=== PATIENT | female | born 1985 | race Caucasian/White ===

== ENCOUNTER 2017-04-13 12:44 | Emergency (ER) | payer SELFPAY ==
[2017-04-13] MEDS ORDERED: Ibuprofen TAB* 400 MG PO ONE (14:11)
--- NOTE | 2017-04-13 14:19 | UC ---
Back Pain HPI - HPI Summary HPI Summary: Patient was assisted a resident off the toilet and her knees buckled and the patient had to hold her as to prevent a fall. The patient states she then felt her back pull and she now complains of back pain that originated from the lower and now radiates to through the entire back. She also notes tingling that is starting to go into her left hip and down the left leg. She denies incontinence of bowel and bladder, and denies saddle anesthesia. She states the pain has been constant. - History of Current Complaint Chief Complaint: UCBackPain Stated Complaint: BACK INJURY WC Time Seen by Provider: 04/13/17 13:56 Hx Obtained From: Patient Hx Last Menstrual Period: 03/30/17 Onset/Duration: Sudden Onset Timing: Constant Severity Initially: Moderate Severity Currently: Moderate Back Pain: Is Diffuse Character: Dull, Aching, Spasmodic, Stiffness Aggravating Factor(s): Movement, Lifting, Bending, Walking Alleviating Factor(s): Nothing - Risk Factors AAA Risk Factors: Negative TAD Risk Factors: Negative Cauda Equina Risk Factors: Negative Epidural Abscess Risk Factors: Negative - Allergies/Home Medications Allergies/Adverse Reactions: Allergies Allergy/AdvReac Type Severity Reaction Status Date / Time No Known Allergies Allergy Verified 04/13/17 12:55 Home Medications: Home Medications NK [No Home Medications Reported] 04/13/17 [History Confirmed 04/13/17] PMH/Surg Hx/FS Hx/Imm Hx Previously Healthy: Yes - Surgical History Surgical History: Yes Surgery Procedure, Year, and Place: c section. tonsilectomy - Family History Known Family History: Positive: Cardiac Disease Family History: breast cancer - Social History Alcohol Use: None Substance Use Type: None Smoking Status (MU): Former Smoker Type: Cigarettes Amount Used/How Often: 5 years Length of Time of Smoking/Using Tobacco: 7 years Have You Smoked in the Last Year: No Review of Systems Musculoskeletal: Decreased ROM, Myalgia All Other Systems Reviewed And Are Negative: Yes Physical Exam Triage Information Reviewed: Yes Appearance: Pain Distress Vital Signs: Initial Vital Signs Temp 98 F 04/13/17 12:57 Pulse 90 04/13/17 12:57 Resp 20 04/13/17 12:57 BP 111/77 04/13/17 12:57 Pulse Ox 100 04/13/17 12:57 Vital Signs Reviewed: Yes Eye Exam: Normal ENT Exam: Normal Neck exam: Normal Respiratory Exam: Normal Cardiovascular Exam: Normal Abdominal Exam: Normal - back inspection; vertebrea in good aligment no step- offs of deformities. no areas of eccymosis, erythma, or edema. palpation; nontender midline. palpable pain through-out the muscualture of the back. lower extremity strength testing equal 4/5. patellar relfexes 2+ negative straight leg raise. gait -slow, heel-toe. Back Pain Course/Dx - Course Course Of Treatment: Patient given ibuprofen in the department. xrays negative. RX muscle relaxers amd nsaids. out of work x three days. pt if symtpoms persist. discharge in stable condition. - Differential Dx/Diagnosis Differential Diagnosis/HQI/PQRI: Strain, Sprain Provider Diagnoses: acute back pain
[2017-04-13 14:50] VITALS: BP 111/66
--- NOTE | 2017-04-13 14:52 | RAD ---
HISTORY: Left back pain, trauma COMPARISONS: None VIEWS: 5 , Frontal, lateral, coned-down lateral sacral, and bilateral oblique views of the lumbar spine. FINDINGS: ALIGNMENT: The alignment is normal. VERTEBRAL BODIES: The vertebral body heights are normal. The interpedicular distances are normal. JOINTS: The facet joints are normal. INTERVERTEBRAL DISCS: The intervertebral disc heights are normal. SOFT TISSUE: Unremarkable. OTHER: The pelvis is unremarkable. The lung bases are clear. IMPRESSION: UNREMARKABLE RADIOGRAPHS OF THE LUMBAR SPINE
== END 2017-04-13 15:39 | disposition home or self-care (01) ==
LOC: UCEAST 12:44
DX: M54.89 Other dorsalgia (principal); W04.XXXA Fall while being carried or supported by other persons, initial encounter; Z87.891 Personal history of nicotine dependence
CPT/HCPCS: 72110; A9270-GY

== ENCOUNTER 2017-11-15 14:34 | Emergency (ER) | payer BC ==
[2017-11-15 15:31] VITALS: BP 116/76
--- NOTE | 2017-11-15 15:42 | UC ---
Respiratory Complaint HPI - HPI Summary HPI Summary: Pt presents with dry cough for 1 week. She has been taking robitussin at bedtime with mild relief. She is currently ~8weeks . Sometimes will get into coughing "fits" that will make her vomit. Denies fever, chills, SOB, chest pain, pelvic pain, vaginal bleeding/discharge. - History of Current Complaint Chief Complaint: UCGeneralIllness Stated Complaint: COUGH Time Seen by Provider: 11/15/17 15:42 Hx Obtained From: Patient Hx Last Menstrual Period: 03/30/17 ?: Yes Onset/Duration: Gradual Onset Severity Initially: Moderate Severity Currently: Moderate Pain Intensity: 6 Pain Scale Used: 0-10 Numeric Character: Cough: Nonproductive - Allergies/Home Medications Allergies/Adverse Reactions: Allergies Allergy/AdvReac Type Severity Reaction Status Date / Time Penicillins Allergy Hives Verified 11/15/17 15:31 PMH/Surg Hx/FS Hx/Imm Hx - Additional Past Medical History Additional PMH: None Previously Healthy: Yes - Surgical History Surgical History: Yes Surgery Procedure, Year, and Place: c section. tonsilectomy - Family History Known Family History: Positive: Cardiac Disease Family History: breast cancer - Social History Occupation: Employed Full-time Lives: With Family Alcohol Use: None Substance Use Type: None Smoking Status (MU): Former Smoker Type: Cigarettes Amount Used/How Often: 5 years Length of Time of Smoking/Using Tobacco: 7 years Have You Smoked in the Last Year: No Review of Systems Constitutional: Negative Skin: Negative Eyes: Negative ENT: Negative Respiratory: Cough Cardiovascular: Negative Gastrointestinal: Negative Neurovascular: Negative Neurological: Negative Psychological: Negative All Other Systems Reviewed And Are Negative: Yes Physical Exam - Summary Physical Exam Summary: GENERAL: NAD. WDWN. No pain distress. SKIN: No rashes, sores, lesions, or open wounds. HEENT: Head: AT/NC Eyes: EOM intact. Conjunctiva clear without inflammation or discharge. Ears: Hearing grossly normal. TMs intact, no bulging, erythema, or edema. Nose: Nasal mucosa pink and moist. NTTP maxillary and frontal sinus. Throat: Posterior oropharynx without exudates, erythema, or tonsillar enlargement. Uvula midline. NECK: Supple. Nontender. No lymphadenopathy. CHEST: CTAB. No r/r/w. No accessory muscle use. Breathing comfortably and in no distress. CV: RRR. Without m/r/g. Pulses intact. Brisk cap refill. NEURO: Alert. CN II-XII grossly intact. PSYCH: Age appropriate behavior. Triage Information Reviewed: Yes Vital Signs: Initial Vital Signs Temp 97.5 F 11/15/17 15:27 Pulse 69 11/15/17 15:27 Resp 20 11/15/17 15:27 BP 116/76 11/15/17 15:27 Pulse Ox 100 11/15/17 15:27 Diagnostic Evaluation - Laboratory O2 Sat by Pulse Oximetry: 100 Respiratory Course/Dx - Course Course Of Treatment: Suspect viral cough. Pt is requesting some type of therapy other than OTC. Given her , antitussive presciptions are extremely limited. She would like to try and antibiotic and will call her OBGYN tomorrow to see if she can take tessalon (preg cat C) or something other than robitussin. - Differential Dx/Diagnosis Provider Diagnoses: Viral cough Discharge - Sign-Out/Discharge Documenting (check all that apply): Discharge/Admit/Transfer - Discharge Plan Condition: Stable Disposition: HOME Prescriptions: Azithromycin TAB* [Zithromax TAB (Z-LINDA) 250 mg #6 tabs] 2 tab PO .TODAY, THEN 1 DAILY #1 linda Patient Education Materials: Acute Bronchitis (ED) Referrals: Vilma Bang MD [Primary Care Provider] - Additional Instructions: If you develop a fever, shortness of breath, chest pain, new or worsening symptoms - please call your PCP or go to the ED. - Billing Disposition and Condition Condition: STABLE Disposition: HOME
== END 2017-11-15 16:30 | disposition home or self-care (01) ==
LOC: UCEAST 14:34
DX: O26.891 Other specified pregnancy related conditions, first trimester (principal); R05 Cough; Z3A.08 8 weeks gestation of pregnancy; Z88.0 Allergy status to penicillin; Z87.891 Personal history of nicotine dependence
CPT/HCPCS: 99212; G0463

== ENCOUNTER 2018-06-18 06:53 | Inpatient (IN) | payer BC, MEDICAID ==
[~2018-06-18 06:53] MED LIST: Buffered Lidocaine 0.9% SYRIN* 5 ML/SYR SYRINGE INTRADERM ONE; Sodium Citrate/Citric Acid* 15 ML UDC PO ONE
[2018-06-18] MEDS ORDERED: Sodium Citrate/Citric Acid* 15 ML UDC ONE (07:10)
[2018-06-18] MEDS ORDERED: ceFAZolin 2 GM PREMIX in ORs 2 GM/50 ML BAG IVPB ONE (07:11)
[2018-06-18] MEDS ORDERED: Morphine PF AMP (0.5MG/ML)* 5 MG/10 ML AMP ONE (08:51)
[2018-06-18] MEDS ORDERED: Carboprost Tromethamine* 250 MCG INJ ONE (09:40)
[2018-06-18] MEDS ORDERED: Ondansetron INJ* 2 MG/ML VIAL ONE (09:56)
[2018-06-18] MEDS ORDERED: EPHEDrine (Pressors)* 50 MG/ML VIAL ONE (09:56)
[2018-06-18] MEDS ORDERED: OXYTOCIN* 10 UNITS/ML 1 ML VIAL ONE (09:57)
[2018-06-18] MEDS ORDERED: Bupivacaine-MPF SPINAL* 7.5 MG/ML - 2ML AMP ONE (09:57)
[2018-06-18] MEDS ORDERED: Ketorolac INJ* 30 MG/ML 1 ML VIAL ONE (09:57)
[2018-06-18] MEDS ORDERED: Nalbuphine* 10 MG/ML 1 ML VIAL IV PRN (10:00)
[2018-06-18] MEDS ORDERED: Acetaminophen TAB* 325 MG PO PRN ×2 (10:00→12:31)
[2018-06-18] MEDS ORDERED: HYDROmorphone INJ1* 1 MG/ML SYRINGE IV PRN (10:00)
[2018-06-18] MEDS ORDERED: oxyCODONE TAB* 5 MG TAB PO PRN (10:00)
[2018-06-18] MEDS ORDERED: Naloxone* 0.4 MG/ML 1 ML VIAL IV PRN ×2 (10:00)
[2018-06-18] MEDS ORDERED: oxyCODONE/Acetamin 5/325 MG* TAB PO PRN (12:30)
[2018-06-18] MEDS ORDERED: Zolpidem TAB* 5 MG PO PRN (12:31)
[2018-06-18] MEDS ORDERED: Glycerin ADULT SUPP PR PRN (12:31)
[2018-06-18] MEDS ORDERED: Dibucaine 1% 28.35 GM TUBE PR PRN (12:31)
[2018-06-18] MEDS ORDERED: Witch Hazel PAD* JAR TOPICAL PRN (12:31)
[2018-06-18] MEDS: Docusate CAP* 100 MG PO SCH ×2 (14:45→21:39)
[2018-06-18] MEDS ORDERED: HYDROmorphone INJ* 0.5 MG/0.5 ML SYRINGE IV PRN (14:45)
[2018-06-18] MEDS: Ketorolac INJ* 30 MG/ML 1 ML VIAL IV PRN ×2 (16:09→21:39)
[2018-06-18] MEDS: Simethicone TAB* 80 MG TAB.CHEW PO SCH (21:39)
[2018-06-19] MEDS ORDERED: oxyCODONE/Acetamin 5/325 MG* TAB PO PRN (01:21)
[2018-06-19] MEDS: Ketorolac INJ* 30 MG/ML 1 ML VIAL IV PRN (03:30)
[2018-06-19 06:47] LABS: ABS Basophils 0 10^3/ul (0-0.2); ABS Eosinophils 0.1 10^3/ul (0-0.6); ABS Lymphocytes 1.1 10^3/ul (1.0-4.8); ABS Neutrophils 7.9 10^3/ul (1.5-7.7); ABS Nucleated RBC 0 10^3/ul; Eosinophil % 0.6 %; Hematocrit 30 % (35-47); Hemoglobin 10.1 g/dl (12.0-16.0); Lymphocyte % 11.3 %; Mean Corpuscular HGB Conc 34 g/dl (31-36); Mean Corpuscular Hemoglobin 31 pg (27-31); Mean Corpuscular Volume 89 fL (80-97); Mean Platelet Volume 8.1 fL (7.4-10.4); Nucleated Red Blood Cells % 0.1; Platelet Count 165 10^3/ul (150-450); Red Blood Count 3.31 10^6/ul (4.00-5.40); Red Cell Distribution Width 13 % (10.5-15); White Blood Count 10.1 10^3/ul (3.5-10.8)
--- NOTE | 2018-06-19 07:23 | OP ---
DATE OF OPERATION: 06/18/18 - ROOM #117 DATE OF : 89 SURGEON: Dr. Akbar. FEEDER TENDER: Dr. Lacy. ANESTHESIA: Spinal. PRE-OP DIAGNOSES: Intrauterine gestation at 39+ weeks gestational age, prior section, desires repeat section, breech presentation. POST-OP DIAGNOSES: Intrauterine gestation at 39+ weeks gestational age, prior section, desires repeat section, breech presentation. OPERATIVE PROCEDURE: Repeat low transverse section. EBL: 800 mL. FLUIDS: Crystalloid. DRAINS: Last catheter with clear urine. COUNTS: Counts were all correct. FINDINGS: Female infant, Apgars of 9 and 9, weight 7 pounds 9 ounces. Normal appearing uterus, ovaries, and tubes. Normal appearing placenta with the three - vessel cord. Moderate amount of scarring between the skin and the peritoneum. No intraperitoneal scarring. DESCRIPTION OF PROCEDURE: After informed consent was signed, the patient was taken to the operating room where she was given spinal anesthesia that was found to be adequate. A Last catheter was introduced into her bladder and SCDs were placed on her legs. She was prepped and draped in the dorsal supine position with a leftward tilt. Just prior to the initiation of the procedure, the patient had what I believed to be a panic attack and passed out very briefly for a few seconds with quick return to normal orientation. Time-out was then performed and a Pfannenstiel skin incision was made along the old scar with a scalpel, this was carried down to the underlying layer of fascia with the scalpel and the Valdez scissors. The fascia was incised on the midline and the fascial incision was extended laterally with the Valdez scissors. The inferior edge of the fascial incision was grasped with Russell clamps, tented up and dissected down with a combination of sharp and blunt dissection, then the superior edge of the fascial incision was grasped with Russell clamps, tented up and dissected down with a combination of sharp and blunt dissection. The rectus muscles were in the midline and the peritoneum was entered bluntly. The peritoneal incision was extended laterally with a combination of sharp and blunt dissection. A transverse incision was made in the lower uterine segment with the scalpel. The incision was extended superiorly and inferiorly with blunt pressure. The was in fabio breech presentation, the buttocks were delivered with fundal pressure followed by the torso and the legs. The arms were delivered rotated internally and the head was delivered in a flexed position. The cord was milked towards the baby and after more than 30 seconds it was clamped x2 and cut. The baby was handed to the clinical director and was vigorous on delivery. Cord blood was collected. The placenta then delivered with fundal massage and gentle cord traction. The uterus was then exteriorized, cleared of all clots and debris and covered with a moist lap. The uterine incision was closed with 0 Vicryl in a running locked fashion with a second layer of suture imbricating the first. Initially, the lower segment was boggy, but then firmed up by the end of the closure. The abdomen was irrigated and the uterus was placed back into the abdominal cavity. The incision was inspected and good hemostasis was noted. The peritoneum was then closed with 3-0 Vicryl in a running unlocked fashion. The fascia was closed with 0 Vicryl in a running unlocked fashion. Good hemostasis was noted in the subcuticular layer. Two sutures of 3-0 Vicryl were placed in the subcuticular layer to reapproximate the tissue. The skin was then closed with 4-0 Monocryl in a running subcuticular fashion. Mastisol and Steri-Strips were placed. The dressing was placed, and the patient was cleaned, move to the stretcher and taken to the recovery room in stable condition. [id number]/[facility] #: [id number] MARIELY
[2018-06-19] MEDS: Simethicone TAB* 80 MG TAB.CHEW PO SCH ×3 (08:54→21:29)
[2018-06-19] MEDS: Ibuprofen TAB* 600 MG PO PRN ×3 (08:54→21:30)
[2018-06-19] MEDS: Docusate CAP* 100 MG PO SCH ×3 (08:55→21:31)
[2018-06-19] MEDS ORDERED: Ferrous Gluconate TAB* 324 MG TAB PO SCH (09:00)
[2018-06-20] MEDS: oxyCODONE/Acetamin 5/325 MG* TAB PO PRN ×6 (01:01→23:35)
[2018-06-20] MEDS: Ibuprofen TAB* 600 MG PO PRN ×4 (05:22→23:35)
[2018-06-20] MEDS: Simethicone TAB* 80 MG TAB.CHEW PO SCH ×3 (08:54→23:10)
[2018-06-20] MEDS: Docusate CAP* 100 MG PO SCH ×3 (08:54→23:10)
[2018-06-21] MEDS: oxyCODONE/Acetamin 5/325 MG* TAB PO PRN ×2 (05:16→11:18)
[2018-06-21] MEDS: Ibuprofen TAB* 600 MG PO PRN (05:40)
[2018-06-21 07:59] VITALS: BP 130/79
[2018-06-21] MEDS: Simethicone TAB* 80 MG TAB.CHEW PO SCH (09:28)
[2018-06-21] MEDS: Docusate CAP* 100 MG PO SCH (09:28)
== END 2018-06-21 11:40 | disposition home or self-care (01) | DRG 540 ==
LOC: MCHOB 06:53 → EDSTATUS 08:45
PROVIDERS: ADMIT Obstetrics & Gynecology; ATTEND Obstetrics & Gynecology
PROC: 10D00Z1 Extraction of Products of Conception, Low, Open Approach (ICD-10-PCS; principal; 2018-06-18 08:45)
DX: O34.211 Maternal care for low transverse scar from previous cesarean delivery (principal); O32.8XX0 Maternal care for other malpresentation of fetus, not applicable or unspecified; F41.0 Panic disorder [episodic paroxysmal anxiety]; R55 Syncope and collapse; Z3A.39 39 weeks gestation of pregnancy; Z37.0 Single live birth
CPT/HCPCS: 36415; 85025; A9270-GY; J0690; J1885; J2405; J2590

== ENCOUNTER 2022-10-03 05:01 | Inpatient (IN) ==
[2022-10-03] MEDS ORDERED: Sodium Citrate/Citric Acid LIQ 15 ML UDC PO ONE (06:00)
[2022-10-03] MEDS ORDERED: Buffered Lidocaine 1% SYRIN 1 ml INTRADERM ONE (06:00)
[2022-10-03] MEDS ORDERED: Lactated Ringers 1000 ml BAG 1,000 ML IV SCH ×2 (06:00→23:00)
[2022-10-03] MEDS ORDERED: ceFOXitin 2 GM PREMIX 50 ML IVPB ONE (06:00)
[2022-10-03 06:27] LABS: ABS Eosinophils 0.1 10^3/ul (0-0.6); ABS Lymphocytes 1.4 10^3/ul (1.0-4.8); ABS Monocytes 0.9 10^3/ul (0-0.8); ABS Neutrophils 5.6 10^3/ul (1.5-7.7); Eosinophil % 0.6 %; Hematocrit 39 % (35-47); Hemoglobin 13.7 g/dL (12.0-16.0); Lymphocyte % 17.8 %; Mean Corpuscular HGB Conc 36 g/dL (31-36); Mean Corpuscular Hemoglobin 35 pg (27-31); Mean Corpuscular Volume 97 fL (80-97); Mean Platelet Volume 8.1 fL (7.4-10.4); Platelet Count 137 10^3/uL (150-450); Red Blood Count 3.96 10^6 /uL (3.70-4.87); Red Cell Distribution Width 13 % (10-15)
[2022-10-03] MEDS ORDERED: Phenylephrine IV 10 MG/ML 1 ml VIAL ONE (07:42)
[2022-10-03] MEDS ORDERED: Morphine PF AMP (0.5MG/ML) 5 MG/10 ML AMP ONE (07:42)
[2022-10-03] MEDS ORDERED: Oxytocin 10 UNITS/ML 1 ML VIAL ONE (07:42)
[2022-10-03] MEDS ORDERED: Scopolamine 1 mg/72hr PATCH ONE (07:42)
[2022-10-03] MEDS ORDERED: Acetaminophen IV 1 GM/100ML 1,000 MG/100 ML BAG IV ONE (07:44)
[2022-10-03] MEDS ORDERED: Ondansetron 4 mg VIAL 2 MG/ML 2 ml VIAL ONE (08:21)
[2022-10-03] MEDS ORDERED: Ondansetron 4 mg VIAL 2 MG/ML 2 ml VIAL IV PRN ×2 (08:48→08:49)
[2022-10-03] MEDS ORDERED: fentaNYL 100 mcg/2 ml 50 MCG/ML VIAL IV PRN (08:48)
[2022-10-03] MEDS ORDERED: Naloxone 0.4 mg VIAL 0.4 mg/ml 1 ml VIAL IV PRN (08:48)
[2022-10-03] MEDS ORDERED: Scopolamine 1 mg/72hr PATCH TRANSDERM PRN (08:49)
[2022-10-03] MEDS ORDERED: Metoclopramide 5 MG/ML VIAL (10 mg) IV PRN (08:49)
[2022-10-03] MEDS ORDERED: Acetaminophen IV 1 GM/100ML 1,000 MG/100 ML BAG IV PRN (08:49)
[2022-10-03] MEDS ORDERED: Naloxone 0.4 mg VIAL 0.4 mg/ml 1 ml VIAL IV PUSH PRN (08:49)
[2022-10-03] MEDS ORDERED: fentaNYL 100 mcg/2 ml 50 MCG/ML VIAL ONE (08:53)
[2022-10-03 13:19] LABS: Urine Benzodiazepine Screen None Detected (None Detect); Urine Opiates Screen None Detected (None Detect)
[2022-10-03] MEDS ORDERED: Witch Hazel PAD JAR TOPICAL PRN (22:52)
[2022-10-03] MEDS ORDERED: Dibucaine 1% OINT 28.35 GM TUBE PR PRN (22:52)
[2022-10-03] MEDS ORDERED: Glycerin ADULT 2.4 gm SUPP PR PRN (22:52)
[2022-10-04 06:32] LABS: ABS Eosinophils 0.1 10^3/ul (0-0.6); ABS Lymphocytes 1.2 10^3/ul (1.0-4.8); ABS Neutrophils 8.7 10^3/ul (1.5-7.7); Eosinophil % 0.6 %; Hematocrit 40 % (35-47); Hemoglobin 14.4 g/dL (12.0-16.0); Lymphocyte % 10.7 %; Mean Corpuscular HGB Conc 36 g/dL (31-36); Mean Corpuscular Hemoglobin 36 pg (27-31); Mean Corpuscular Volume 98 fL (80-97); Mean Platelet Volume 7.7 fL (7.4-10.4); Platelet Count 136 10^3/uL (150-450); Red Blood Count 4.04 10^6 /uL (3.70-4.87); Red Cell Distribution Width 13 % (10-15); White Blood Count 11.1 10^3/uL (3.5-10.8)
[2022-10-05 08:11] VITALS: BP 129/67
== END 2022-10-05 11:24 | disposition home or self-care (01) | DRG 785 ==
LOC: MCHOB 05:01
PROVIDERS: ADMIT Obstetrics & Gynecology; ATTEND Obstetrics & Gynecology